=== PATIENT | female | born 2000 | race Two or more races ===

== ENCOUNTER 2022-04-24 15:22 | Emergency (ER) | payer OTHER ==
[~2022-04-24] VITALS: Ht 157.5 cm; Wt 61.2 kg
[2022-04-24] MEDS ORDERED: CITALOPRAM HBR10 MG PO (16:03)
[2022-04-24] MEDS ORDERED: PEPCID AC20 MG (16:04)
[2022-04-24] MEDS ORDERED: PROTONIX40 M1 PO (16:04)
[2022-04-24] MEDS ORDERED: VISTARIL25 MG PO (16:04)
[2022-04-24] MEDS ORDERED: MIRALAX510 GM PO (19:49)
== END 2022-04-24 19:53 | disposition home or self-care (01) ==
LOC: ER 15:22
DX: K59.00 Constipation, unspecified (principal)